=== PATIENT | female | born 1955 | race Caucasian/White ===

== ENCOUNTER → 2019-05-25 13:14 | Outpatient (BNVA) | payer MEDICARE, OTHER, SELFPAY | PROVIDERS: Family Provider Nurse Practitioner Family; PCP Nurse Practitioner Family; Visit Provider Internal Medicine Rheumatology | DX: M05.79 Rheumatoid arthritis with rheumatoid factor of multiple sites without organ or systems involvement (principal); Z79.899 Other long term (current) drug therapy; M19.011 Primary osteoarthritis, right shoulder; M81.0 Age-related osteoporosis without current pathological fracture; K21.9 Gastro-esophageal reflux disease without esophagitis; Z51.81 Encounter for therapeutic drug level monitoring; E78.00 Pure hypercholesterolemia, unspecified; D89.9 Disorder involving the immune mechanism, unspecified | CPT/HCPCS: 36415; 80053; 85025; 99214 ==

== ENCOUNTER → 2019-05-25 13:49 | Outpatient (BNVA) | payer MEDICARE, OTHER, SELFPAY | PROVIDERS: Family Provider Nurse Practitioner Family; PCP Nurse Practitioner Family; Visit Provider Internal Medicine Rheumatology | DX: M05.79 Rheumatoid arthritis with rheumatoid factor of multiple sites without organ or systems involvement (principal); Z51.81 Encounter for therapeutic drug level monitoring; M81.0 Age-related osteoporosis without current pathological fracture; E78.00 Pure hypercholesterolemia, unspecified; K21.9 Gastro-esophageal reflux disease without esophagitis; D89.9 Disorder involving the immune mechanism, unspecified | CPT/HCPCS: 85025 ==

== ENCOUNTER → 2019-09-14 10:24 | Outpatient (BNVA) | payer MEDICARE, OTHER, SELFPAY | PROVIDERS: Family Provider Nurse Practitioner Family; PCP Nurse Practitioner Family; Visit Provider Internal Medicine Rheumatology | DX: D89.9 Disorder involving the immune mechanism, unspecified (principal); Z79.899 Other long term (current) drug therapy; M81.0 Age-related osteoporosis without current pathological fracture; Z51.81 Encounter for therapeutic drug level monitoring; M05.79 Rheumatoid arthritis with rheumatoid factor of multiple sites without organ or systems involvement; M32.9 Systemic lupus erythematosus, unspecified | CPT/HCPCS: 80053; 80076; 82310; 82565; 85025; 85651; 86140; 86704; 86803; 87340 ==

== ENCOUNTER 2019-09-27 13:27 | Outpatient (CLI) | payer MEDICARE, OTHER, SELFPAY ==
[2019-09-27 13:46] VITALS: BP 162/95; PULSE 63; RESP 16; TEMP 36.6; O2SAT 97
[2019-09-27 13:51] VITALS: BP 156/85
[2019-09-27] MEDS: denosumab 60 mg SDV SUBCUT (13:54)
[2019-09-27 14:12] VITALS: BP 139/81; PULSE 69; RESP 16; TEMP 36.6; O2SAT 97
== END 2019-09-27 13:28 | disposition home or self-care (01) ==
LOC: RHEOACUTE 13:29
PROVIDERS: Family Provider Nurse Practitioner Family; PCP Nurse Practitioner Family; Visit Provider Internal Medicine Rheumatology
DX: M05.79 Rheumatoid arthritis with rheumatoid factor of multiple sites without organ or systems involvement (principal); M81.0 Age-related osteoporosis without current pathological fracture; Z79.899 Other long term (current) drug therapy; M85.88 Other specified disorders of bone density and structure, other site; M40.294 Other kyphosis, thoracic region; M48.54XA Collapsed vertebra, not elsewhere classified, thoracic region, initial encounter for fracture; X58.XXXA Exposure to other specified factors, initial encounter
CPT/HCPCS: 72070; 96372; 99214; J0897

== ENCOUNTER 2019-09-27 15:06 | Outpatient (CLI) | payer MEDICARE, OTHER, SELFPAY ==
--- NOTE | 2019-09-27 15:25 | XR_ITS ---
WS: [id number] THORACIC SPINE TECHNIQUE: 3 views of the thoracic spine CLINICAL INFORMATION: worsening mid back pain COMPARISON: September 14, 2018. FINDINGS: Osteopenia. Mild thoracic curve convex right. Moderate thoracic kyphosis. Chronic anterior wedging in the mid thoracic spine. Aortic calcification. No acute appearing compression fractures. XR/XR thoracic spine 2V [id number] IMPRESSION: 1. Mild thoracic curve with mild thoracic kyphosis. 2. Osteopenia. 3. Chronic appearing anterior wedging in the mid thoracic spine appears unchan ged. 4. No acute appearing compression fractures.
== END 2019-09-27 15:07 | disposition home or self-care (01) ==
LOC: WPI 15:10
PROVIDERS: Family Provider Nurse Practitioner Family; PCP Nurse Practitioner Family; Visit Provider Internal Medicine
DX: M85.88 Other specified disorders of bone density and structure, other site (principal); M40.294 Other kyphosis, thoracic region; M48.54XA Collapsed vertebra, not elsewhere classified, thoracic region, initial encounter for fracture; X58.XXXA Exposure to other specified factors, initial encounter
CPT/HCPCS: 72070

== ENCOUNTER 2019-10-01 14:49 | Outpatient (CLI) | payer MEDICARE, OTHER, SELFPAY ==
--- NOTE | 2019-10-01 16:00 | MR_ITS ---
WS: [id number] MRI THORACIC SPINE WITHOUT CONTRAST TECHNIQUE: Sagittal T1, T2 and STIR imaging. Axial T2 imaging. Noncontrast imaging obtained. CLINICAL INFORMATION: M81.0 Age-related osteoporosis without current pathologic... COMPARISON: None. FINDINGS: Mild thoracic curve with thoracic kyphosis. Osteopenia. Chronic appearing anterior wedging in the mid thoracic spine T7, T8, T9. No acute appearing compression fractures. No endplate edema. Mild spondylitic changes thoracic spine with mild disc space narrowing mid thoracic spine with degene rative endplate-type changes. No high-grade central canal stenosis. Cord signal is normal. Moderate f acet arthropathy in the lower thoracic spine. Mild right T9-T10 and right T10-11 bony foraminal narro wing. Normal caliber thoracic aorta. Adrenal glands are normal. MR/MR thoracic spin wo con* [id number] IMPRESSION: 1. Mild thoracic kyphosis. No acute compression. 2. Chronic appearing anterior wedging in the mid thoracic spine at T7, T8, and T9. 3. Mild chronic appearing compression superior endplate T11 with endplate Schm orl's node. 4. Spinal canal is patent. No significant spinal canal narrowing. 5. Moderate facet arthropathy lower thoracic spine.
== END 2019-10-01 14:50 | disposition home or self-care (01) ==
LOC: RADSHAW 14:53
PROVIDERS: PCP Nurse Practitioner Family; Visit Provider Internal Medicine
DX: M81.0 Age-related osteoporosis without current pathological fracture (principal); M40.294 Other kyphosis, thoracic region; M48.54XA Collapsed vertebra, not elsewhere classified, thoracic region, initial encounter for fracture; M51.44 Schmorl's nodes, thoracic region; M47.814 Spondylosis without myelopathy or radiculopathy, thoracic region
CPT/HCPCS: 72146

== ENCOUNTER → 2019-12-30 10:49 | Outpatient (BNVA) | payer MEDICARE, OTHER, SELFPAY | PROVIDERS: PCP Nurse Practitioner Family; Visit Provider Internal Medicine | DX: D89.9 Disorder involving the immune mechanism, unspecified (principal) | CPT/HCPCS: 80053; 82306; 85025 ==

== ENCOUNTER → 2020-01-05 10:54 | Outpatient (BNVA) | payer MEDICARE, OTHER, SELFPAY | PROVIDERS: PCP Nurse Practitioner Family; Visit Provider Internal Medicine | DX: M05.79 Rheumatoid arthritis with rheumatoid factor of multiple sites without organ or systems involvement (principal); M81.0 Age-related osteoporosis without current pathological fracture; Z79.899 Other long term (current) drug therapy | CPT/HCPCS: 99214 ==

== ENCOUNTER → 2020-03-21 11:22 | Outpatient (BNVA) | payer MEDICARE, OTHER, SELFPAY | PROVIDERS: PCP Nurse Practitioner Family; Visit Provider Nurse Practitioner Family | DX: M05.79 Rheumatoid arthritis with rheumatoid factor of multiple sites without organ or systems involvement (principal); M81.0 Age-related osteoporosis without current pathological fracture; Z51.81 Encounter for therapeutic drug level monitoring | CPT/HCPCS: 80053; 85007; 85027; 85651; 86140 ==

== ENCOUNTER 2020-03-29 13:59 | Outpatient (CLI) | payer MEDICARE, OTHER, SELFPAY ==
[2020-03-29 14:00] VITALS: BP 153/92; PULSE 64; RESP 16; TEMP 36.2; O2SAT 98
[2020-03-29] MEDS: denosumab 60 mg SDV SUBCUT (14:15)
[2020-03-29 14:40] VITALS: BP 132/86; PULSE 70; TEMP 36.6; O2SAT 90
== END 2020-03-29 14:00 | disposition home or self-care (01) ==
LOC: RHEOACUTE 14:01
PROVIDERS: PCP Nurse Practitioner Family; Visit Provider Internal Medicine Rheumatology
DX: M81.0 Age-related osteoporosis without current pathological fracture (principal)
CPT/HCPCS: 96372; J0897

== ENCOUNTER → 2020-05-01 13:02 | Outpatient (BNVA) | payer MEDICARE, OTHER, SELFPAY | PROVIDERS: PCP Nurse Practitioner Family; Visit Provider Internal Medicine | DX: M05.79 Rheumatoid arthritis with rheumatoid factor of multiple sites without organ or systems involvement (principal); M81.0 Age-related osteoporosis without current pathological fracture; E55.9 Vitamin D deficiency, unspecified; Z79.899 Other long term (current) drug therapy | CPT/HCPCS: 99214 ==

== ENCOUNTER → 2020-07-28 11:16 | Outpatient (BNVA) | payer MEDICARE, OTHER, SELFPAY | PROVIDERS: PCP Nurse Practitioner Family; Visit Provider Nurse Practitioner Family | DX: I10 Essential (primary) hypertension (principal); E55.9 Vitamin D deficiency, unspecified; E78.00 Pure hypercholesterolemia, unspecified; Z79.899 Other long term (current) drug therapy; D64.9 Anemia, unspecified; M54.6 Pain in thoracic spine; G89.29 Other chronic pain; M48.50XA Collapsed vertebra, not elsewhere classified, site unspecified, initial encounter for fracture | CPT/HCPCS: 80053; 80061; 81003; 82306; 83036; 83550; 84443; 85025 ==

== ENCOUNTER → 2020-10-26 10:24 | Outpatient (BNVA) | payer MEDICARE, OTHER, SELFPAY | PROVIDERS: PCP Nurse Practitioner Family; Visit Provider Internal Medicine | DX: D64.9 Anemia, unspecified (principal); D89.9 Disorder involving the immune mechanism, unspecified; M05.79 Rheumatoid arthritis with rheumatoid factor of multiple sites without organ or systems involvement; M19.011 Primary osteoarthritis, right shoulder; M81.0 Age-related osteoporosis without current pathological fracture; Z79.899 Other long term (current) drug therapy | CPT/HCPCS: 80053; 85025; 85651; 86140 ==

== ENCOUNTER → 2020-10-31 09:22 | Outpatient (BNVA) | payer MEDICARE, OTHER, SELFPAY | PROVIDERS: PCP Nurse Practitioner Family; Visit Provider Internal Medicine | DX: M05.79 Rheumatoid arthritis with rheumatoid factor of multiple sites without organ or systems involvement (principal); M81.0 Age-related osteoporosis without current pathological fracture | CPT/HCPCS: 99214 ==

== ENCOUNTER 2020-10-31 10:24 | Outpatient (CLI) | payer MEDICARE, OTHER, SELFPAY ==
--- NOTE | 2020-10-31 10:36 | XR_ITS ---
WS: [id number] TECHNIQUE: 2 views of the right hand CLINICAL INFORMATION: E55.9 - Vitamin D deficiency, unspecified COMPARISON: None. FINDINGS: Osteopenia. Chronic changes of rheumatoid arthritis with complete loss of the radiocarpal or ulnocarp al articulations with sclerosis. Hypertrophic changes at the DRUJ. Subluxation with complete loss of the joint space at the first MCP. Ankylosis of the carpal bones. IP joints are relatively well-preser suellen. MCP joints are otherwise well preserved. Slight spurring involving the fifth second third metaca rpal heads. XR/XR hand RT 2V [id number] IMPRESSION: 1. Osteopenia. 2. Advanced chronic changes of rheumatoid arthritis involving the wrist with a nkylosis of the carpal bones and complete loss of the radiocarpal and intercarp al joint spaces. 3. Advanced subluxation involving the first MCP with hypertrophic changes. 4. MCP joints and IP joints are otherwise relatively well-preserved.
--- NOTE | 2020-10-31 10:36 | XR_ITS ---
WS: [id number] TECHNIQUE: 2 views of the left hand CLINICAL INFORMATION: E55.9 - Vitamin D deficiency, unspecified COMPARISON: None. FINDINGS: Osteopenia. Diffuse chronic arthritic changes with diffuse loss of the joint space at the radiocarpal joint, ulnocarpal joint, and DRUJ. Hypertrophic changes and sclerosis involving the radiocarpal and ulnocarpal articulations. Ankylosis of the carpal bones. Narrowing of the first MCP joint. MCP and IP joints are otherwise relatively well-preserved with no significant erosive changes. Normal metacarpa ls and metacarpal heads. XR/XR hand LT 2V [id number] IMPRESSION: 1. Advanced arthritic changes involving the radiocarpal and ulnar carpal artic ulations with ankylosis of the carpal bones. 2. Hypertrophic changes with sclerosis at the ulnar carpal and radiocarpal art iculations and DRUJ. 3. Osteopenia. 4. Moderate joint space narrowing involving the first MCP joint. 5. MCP joints and IP joints are otherwise well preserved.
== END 2020-10-31 10:25 | disposition home or self-care (01) ==
PROVIDERS: PCP Nurse Practitioner Family; Visit Provider Internal Medicine
DX: E55.9 Vitamin D deficiency, unspecified (principal); M85.842 Other specified disorders of bone density and structure, left hand; M85.841 Other specified disorders of bone density and structure, right hand
CPT/HCPCS: 73120

== ENCOUNTER 2020-11-14 13:43 | Outpatient (CLI) | payer MEDICARE, OTHER, SELFPAY ==
[2020-11-14 14:11] VITALS: BP 155/69; PULSE 93; RESP 18; TEMP 36.2; O2SAT 97
[2020-11-14] MEDS: denosumab 60 mg SDV SUBCUT (14:39)
[2020-11-14 15:30] LABS: 25 Hydroxy Vitamin D 46 ng/mL (30-100)
== END 2020-11-14 13:44 | disposition home or self-care (01) ==
LOC: ONCMED 13:48
PROVIDERS: PCP Nurse Practitioner Family; Referring Provider Internal Medicine; Visit Provider Internal Medicine
DX: M81.0 Age-related osteoporosis without current pathological fracture (principal)
CPT/HCPCS: 82306; 96372; J0897

== ENCOUNTER 2020-11-20 13:31 | Outpatient (CLI) | payer MEDICARE, OTHER, SELFPAY ==
--- NOTE | 2020-11-20 14:15 | XR_ITS ---
WS: [id number] DEXA (DUAL ENERGY X-RAY ABSORPTIOMETRY) Bone mineral density was performed using a [employer] machine. HISTORY: M81.0 - Age-related osteoporosis without current pathological fracture COMPARISON: 11/16/2018 Lumbar spine BMD (L1-L4): 0.738 g/cm2 T score: -3.7 Z score: -2.1 Total hip BMD: Left: 0.707 g/cm2. T score: -2.4 Z score: -1.1 Right: 0.731 g/cm2. T score: -2.2 Z score: -0.9 10 year probability of a major osteoporotic fracture is 21%. Compared to the prior study from 11/16/2018. Lumbar spine bone mineral density has increased by 0.5%. Bilateral hips bone mineral density has increased by 5.9%. XR/XR DEXA axial skeleton* [id number] IMPRESSION: OSTEOPOROSIS based upon the WHO classification for females. Significant increas e in bone mineral density in the hips since the prior study.
== END 2020-11-20 13:32 | disposition home or self-care (01) ==
PROVIDERS: PCP Nurse Practitioner Family; Visit Provider Internal Medicine
DX: M81.0 Age-related osteoporosis without current pathological fracture (principal)
CPT/HCPCS: 77080

== ENCOUNTER → 2021-02-05 00:01 | Outpatient (BNVA) | payer MEDICARE, OTHER, SELFPAY | PROVIDERS: PCP Nurse Practitioner Family; Visit Provider Nurse Practitioner Family | DX: L03.90 Cellulitis, unspecified (principal) | CPT/HCPCS: 87070; 87077; 87184 ==

== ENCOUNTER → 2021-03-02 11:13 | Outpatient (BNVA) | payer MEDICARE, OTHER, SELFPAY | PROVIDERS: PCP Nurse Practitioner Family; Visit Provider Internal Medicine | DX: D86.9 Sarcoidosis, unspecified (principal); E55.9 Vitamin D deficiency, unspecified; D89.9 Disorder involving the immune mechanism, unspecified; M81.0 Age-related osteoporosis without current pathological fracture; Z79.899 Other long term (current) drug therapy | CPT/HCPCS: 80053; 82306; 85025; 85651; 86140 ==

== ENCOUNTER → 2021-05-10 11:10 | Outpatient (BNVA) | payer MEDICARE, SELFPAY | PROVIDERS: PCP Nurse Practitioner Family; Visit Provider Internal Medicine | DX: E78.00 Pure hypercholesterolemia, unspecified (principal); M05.79 Rheumatoid arthritis with rheumatoid factor of multiple sites without organ or systems involvement; M81.0 Age-related osteoporosis without current pathological fracture; Z51.81 Encounter for therapeutic drug level monitoring | CPT/HCPCS: 80053; 85025; 85651; 86140 ==

== ENCOUNTER → 2021-05-14 10:26 | Outpatient (BNVA) | payer MEDICARE, SELFPAY | PROVIDERS: PCP Nurse Practitioner Family; Visit Provider Internal Medicine | DX: M05.79 Rheumatoid arthritis with rheumatoid factor of multiple sites without organ or systems involvement (principal); M81.0 Age-related osteoporosis without current pathological fracture; W19.XXXA Unspecified fall, initial encounter; Y93.9 Activity, unspecified | CPT/HCPCS: 99214 ==

== ENCOUNTER 2021-05-14 11:40 | Outpatient (CLI) | payer MEDICARE, SELFPAY ==
--- NOTE | 2021-05-14 11:54 | XR_ITS ---
WS: [email or web address] XR lumbar spine 2-3V* [id number] REASON FOR EXAM: M81.0 - Age-related osteoporosis without current patholog... FINDINGS: Decreased bone density with mild biconcave compression deformities in the lower thoracic spine. No si gnificant compression deformity or focal lesion involving the lumbar vertebrae. Mild narrowing of the L3-L4 disc space with moderate narrowing of the L4-L5 and L5-S1 disc spaces. XR/XR lumbar spine 2-3V* [id number] IMPRESSION: Decreased bone density with degenerative spondylosis in the lower lumbar spine as above.
--- NOTE | 2021-05-14 11:54 | XR_ITS ---
WS: [email or web address] XR chest 2V* [id number] REASON FOR EXAM: Z79.899 - Other long-term (current) drug therapy FINDINGS: Moderate tortuosity the thoracic aorta without aneurysmal dilatation. Normal heart size. Calcified granulomatous disease in both hemithoraces. No active pulmonary parenchymal or pleural disease. Left hepatic colon interposition. Mild wedge-shaped and biconcave compression deformities seen in the mid and lower thoracic spine. Deformity of the superior endplate of T11 posteriorly. Thoracic spine stable compared to previous examination 09/27/2019. XR/XR chest 2V* [id number] IMPRESSION: No acute chest abnormality.
--- NOTE | 2021-05-14 11:54 | XR_ITS ---
WS: [email or web address] XR thoracic spine 3V* [id number] REASON FOR EXAM: M81.0 - Age-related osteoporosis without current patholog... FINDINGS: Decreased bone density. Mild wedge-shaped and biconcave compression deformities in the mid and lower thoracic spine. No change compared to previous examination 09/27/2019. XR/XR thoracic spine 3V* [id number] IMPRESSION: Stable thoracic spine as above.
--- NOTE | 2021-05-14 11:54 | XR_ITS ---
WS: [email or web address] XR ribs BI 3V* [id number] REASON FOR EXAM: M48.50XA - Collapsed vertebra, not elsewhere classified, ... FINDINGS: Incomplete evaluation of the right ribs. (No oblique view) Subtle deformities of the posterior lateral right second and left fourth ribs compatible with old hea led fracture. No acute fracture or focal bone lesion identified. XR/XR ribs BI 3V* [id number] IMPRESSION: Limited examination of the right ribs. Old healed fractures as above. No definite acute abnormality.
== END 2021-05-14 11:41 | disposition home or self-care (01) ==
PROVIDERS: PCP Nurse Practitioner Family; Visit Provider Internal Medicine
DX: G89.29 Other chronic pain (principal); M48.50XA Collapsed vertebra, not elsewhere classified, site unspecified, initial encounter for fracture; M54.9 Dorsalgia, unspecified; M81.0 Age-related osteoporosis without current pathological fracture; Z79.899 Other long term (current) drug therapy
CPT/HCPCS: 71046; 71110; 72072; 72100

== ENCOUNTER 2021-06-14 11:14 | Outpatient (CLI) | payer MEDICARE, SELFPAY ==
[2021-06-14 12:24] LABS: Albumin Level 4.3 g/dL (3.5-5.2); Calcium 9.8 mg/dL (8.5-10.5); Glomerular Filtration Rate 83.5 mL/min (90-130)
[2021-06-14 12:47] LABS: 25 Hydroxy Vitamin D > 100 ng/mL (30-100)
[2021-06-14 13:00] VITALS: BP 142/90; PULSE 90; RESP 18; TEMP 36.7; O2SAT 96
[2021-06-14] MEDS: denosumab 60 mg SDV SUBCUT (13:03)
[2021-06-14 13:09] VITALS: BP 139/92; PULSE 73; RESP 18; TEMP 36.6; O2SAT 96
== END 2021-06-14 11:15 | disposition home or self-care (01) ==
PROVIDERS: PCP Nurse Practitioner Family; Referring Provider Internal Medicine; Visit Provider Internal Medicine Medical Oncology
DX: M81.0 Age-related osteoporosis without current pathological fracture (principal); Z79.899 Other long term (current) drug therapy
CPT/HCPCS: 36415; 82040; 82306; 82310; 82565; 96372; J0897

== ENCOUNTER 2021-12-31 10:51 | Outpatient (CLI) | payer MEDICARE, SELFPAY ==
[2021-12-31 11:48] LABS: Calcium 9.3 mg/dL (8.5-10.5); Glomerular Filtration Rate 83.2 mL/min (90-130)
[2021-12-31 12:07] VITALS: BP 122/78; PULSE 75; RESP 18; TEMP 36.3; O2SAT 97
[2021-12-31] MEDS: denosumab 60 mg SDV SUBCUT (12:12)
[2021-12-31 12:22] VITALS: BP 137/76; PULSE 73; RESP 18; TEMP 36.3; O2SAT 97
[2021-12-31 12:24] LABS: 25 Hydroxy Vitamin D > 100 ng/mL (30-100)
== END 2021-12-31 10:52 | disposition home or self-care (01) ==
PROVIDERS: PCP Nurse Practitioner Family; Visit Provider Internal Medicine
DX: M81.0 Age-related osteoporosis without current pathological fracture (principal); Z79.899 Other long term (current) drug therapy
CPT/HCPCS: 36415; 82040; 82306; 82310; 82565; 96372; J0897

== ENCOUNTER 2022-10-25 08:29 | Oncology outpatient (recurring) (ONCR) | payer MEDICARE, SELFPAY ==
[2022-10-25 09:57] LABS: Albumin Level 4.1 g/dL (3.5-5.2); Calcium 9.4 mg/dL (8.5-10.5)
[2022-10-25] MEDS: denosumab 60 mg SDV SUBCUT (10:10)
[2022-10-25 10:12] LABS: 25 Hydroxy Vitamin D 37 ng/mL (30-100)
[2022-10-25 10:16] VITALS: BP 155/101; PULSE 76; RESP 18; TEMP 36.9; O2SAT 98
== END 2022-11-11 23:59 | disposition home or self-care (01) ==
PROVIDERS: Internal Medicine; PCP Nurse Practitioner; Visit Provider Neurological Surgery
DX: M05.79 Rheumatoid arthritis with rheumatoid factor of multiple sites without organ or systems involvement (principal); M81.0 Age-related osteoporosis without current pathological fracture
CPT/HCPCS: 36415; 82040; 82306; 82310; 82565; 96372; J0897

== ENCOUNTER → 2023-05-27 11:41 | Outpatient (BNVA) | payer MEDICARE, SELFPAY | PROVIDERS: PCP Nurse Practitioner; Visit Provider Nurse Practitioner Family | DX: Z79.899 Other long term (current) drug therapy (principal); I10 Essential (primary) hypertension; E78.00 Pure hypercholesterolemia, unspecified; Z86.39 Personal history of other endocrine, nutritional and metabolic disease | CPT/HCPCS: 80053; 80061; 81003; 83036; 84443; 85025 ==

== ENCOUNTER 2023-08-13 12:51 | Outpatient (CLI) | payer MEDICARE, SELFPAY ==
--- NOTE | 2023-08-13 13:00 | MM_ITS ---
WS: [email or web address] BILATERAL 3D TOMOSYNTHESIS DIGITAL SCREENING MAMMOGRAPHY WITH CAD CLINICAL INFORMATION: Z12.31 - Encounter for screening mammogram for malignant ... HISTORY: Screening mammogram. No current complaints. COMPARISON: 2017 TECHNIQUE: Bilateral CC and MLO views. FINDINGS: Scattered fibroglandular densities bilaterally. No suspicious focal mass, asymmetry, calcifications, or architectural distortion. No evidence of malignancy. Vascular calcifications. MM/[place] [id number] IMPRESSION: BI-RADS: 2-Benign FOLLOW UP: 1 Year Follow-up Recommend return to annual screening mammography.
== END 2023-08-13 12:52 | disposition home or self-care (01) ==
LOC: MOBLMAM 13:03
PROVIDERS: PCP Nurse Practitioner Family; Visit Provider Nurse Practitioner Family
DX: Z12.31 Encounter for screening mammogram for malignant neoplasm of breast (principal)
CPT/HCPCS: 77063; 77067

== ENCOUNTER → 2023-10-13 13:22 | Outpatient (BNVA) | payer MEDICARE, SELFPAY | PROVIDERS: PCP Nurse Practitioner Family; Visit Provider Internal Medicine Rheumatology | DX: M05.79 Rheumatoid arthritis with rheumatoid factor of multiple sites without organ or systems involvement (principal); M81.0 Age-related osteoporosis without current pathological fracture; Z79.899 Other long term (current) drug therapy; Z71.85 Encounter for immunization safety counseling; Z11.1 Encounter for screening for respiratory tuberculosis; Z11.59 Encounter for screening for other viral diseases | CPT/HCPCS: 36415; 80076; 82306; 82310; 82565; 85025; 85651; 86140; 99214 ==

== ENCOUNTER → 2024-07-06 11:48 | Outpatient (BNVA) | payer MEDICARE, SELFPAY | PROVIDERS: PCP Nurse Practitioner Family; Visit Provider Internal Medicine Rheumatology | DX: M05.79 Rheumatoid arthritis with rheumatoid factor of multiple sites without organ or systems involvement (principal); M81.0 Age-related osteoporosis without current pathological fracture; Z79.899 Other long term (current) drug therapy; Z71.85 Encounter for immunization safety counseling | CPT/HCPCS: 20600; 36415; 80076; 82306; 82310; 82565; 85025; 85651; 86140; 99214 ==

== ENCOUNTER 2024-07-22 14:32 | Outpatient (CLI) | payer MEDICARE, SELFPAY ==
--- NOTE | 2024-07-22 13:00 | XR_ITS ---
WS: [email or web address] SCREENING DEXA SCAN [employer] K[employer] CLINICAL INFORMATION: M81.0 - Age-related osteoporosis without current patholog... COMPARISON: 2020 FINDINGS: The L1-L4 bone mineral density measures 0.746 g/cm2. This corresponds to a T score score of -3.6 and Z score of -1.6. Left femoral neck bone mineral density measures 0.609 g/cm2. This corresponds to a T score of -3.2 and Z score of -1.5. Right femoral neck bone mineral density measures 0.613 g/cm2. This corresponds to a T score -3.1of and Z score of -1.4. Mean femoral neck bone mineral density measures 0.611 g/cm2. This corresponds to a T score of -3.1 and Z score of -1.4. XR/XR DEXA axial skeleton* [id number] IMPRESSION: Osteoporosis lumbar spine. Osteoporosis femoral necks. Patient's FRAX calculated 10 year probability for major osteoporotic fracture i s 27.9% and osteoporotic hip fracture is 12.8%. Bone mineral density lumbar spine increased 1.1% Density femoral neck decreased -15%
== END 2024-07-22 14:33 | disposition home or self-care (01) ==
PROVIDERS: PCP Nurse Practitioner Family; Visit Provider Internal Medicine Rheumatology
DX: M81.0 Age-related osteoporosis without current pathological fracture (principal)
CPT/HCPCS: 77080

== ENCOUNTER 2024-07-28 15:06 | Oncology outpatient (recurring) (ONCR) | payer MEDICARE, SELFPAY ==
[2024-07-28] MEDS: denosumab 60 mg SDV SUBCUT (15:54)
== END 2024-08-11 23:59 | disposition home or self-care (01) ==
PROVIDERS: PCP Nurse Practitioner Family; Visit Provider Internal Medicine Rheumatology
DX: M81.0 Age-related osteoporosis without current pathological fracture (principal); Z79.899 Other long term (current) drug therapy
CPT/HCPCS: 96372; J0897

== ENCOUNTER 2024-10-13 10:21 | Outpatient (CLI) | payer MEDICARE, SELFPAY ==
--- NOTE | 2024-10-13 10:20 | MM_ITS ---
WS: [id number] BILATERAL SCREENING DIGITAL TOMOSYNTHESIS MAMMOGRAM WITH CAD HISTORY: Z12.31 - Encounter for screening mammogram for malignant ... COMPARISON: 08/13/2023, 10/24/2016 Bilateral CC and MLO views with tomosynthesis and synthetic mammography submitted. Computer aided detection analyzed. Breast composition: There are scattered areas of fibroglandular density. No suspicious masses, microcalcifications or architectural distortion. MM/MM scr tomosynthesis [id number] IMPRESSION: BI-RADS: 2 - Benign. FOLLOW UP: 1 Year Follow-up
== END 2024-10-13 10:22 | disposition home or self-care (01) ==
PROVIDERS: PCP Nurse Practitioner Family; Visit Provider Nurse Practitioner Family
DX: Z12.31 Encounter for screening mammogram for malignant neoplasm of breast (principal); I10 Essential (primary) hypertension; Z86.39 Personal history of other endocrine, nutritional and metabolic disease; K21.9 Gastro-esophageal reflux disease without esophagitis; Z79.899 Other long term (current) drug therapy; E55.9 Vitamin D deficiency, unspecified
CPT/HCPCS: 77063; 77067; 80053; 80061; 81003; 82306; 83036; 84443; 85025

== ENCOUNTER → 2024-10-18 09:18 | Outpatient (BNVA) | payer MEDICARE, SELFPAY | PROVIDERS: PCP Nurse Practitioner Family; Visit Provider Internal Medicine Cardiovascular Disease | DX: R07.9 Chest pain, unspecified (principal); R42 Dizziness and giddiness; R00.2 Palpitations; I49.8 Other specified cardiac arrhythmias; I49.3 Ventricular premature depolarization; I47.10 Supraventricular tachycardia, unspecified; I49.1 Atrial premature depolarization; I44.1 Atrioventricular block, second degree | CPT/HCPCS: 93246 ==

== ENCOUNTER → 2024-10-18 09:46 | Outpatient (BNVA) | payer MEDICARE, SELFPAY | PROVIDERS: PCP Nurse Practitioner Family; Visit Provider Internal Medicine Cardiovascular Disease | DX: R07.9 Chest pain, unspecified (principal) | CPT/HCPCS: 93005; 99214 ==

== ENCOUNTER → 2024-11-18 12:55 | Outpatient (BNVA) | payer MEDICARE, SELFPAY | PROVIDERS: PCP Nurse Practitioner Family; Visit Provider Nurse Practitioner Family | DX: L82.1 Other seborrheic keratosis (principal); D18.01 Hemangioma of skin and subcutaneous tissue; L73.8 Other specified follicular disorders; L57.8 Other skin changes due to chronic exposure to nonionizing radiation; L82.0 Inflamed seborrheic keratosis; R20.8 Other disturbances of skin sensation; L29.89 Other pruritus; Z78.9 Other specified health status; L53.8 Other specified erythematous conditions; D48.5 Neoplasm of uncertain behavior of skin | CPT/HCPCS: 11102; 17110; 99203 ==

== ENCOUNTER 2025-01-27 08:43 | Oncology outpatient (recurring) (ONCR) | payer MEDICARE, SELFPAY ==
[2025-01-27] MEDS: denosumab 60 mg SDV (Infusion Clinic Only) SUBCUT (09:01)
== END 2025-02-11 23:59 | disposition home or self-care (01) ==
LOC: ONCMED 08:44
PROVIDERS: PCP Nurse Practitioner Family; Visit Provider Internal Medicine Rheumatology
DX: M81.0 Age-related osteoporosis without current pathological fracture (principal); Z79.899 Other long term (current) drug therapy
CPT/HCPCS: 96372; J0897